=== PATIENT | female | born 1985 | race Caucasian/White ===

== ENCOUNTER 2016-11-22 04:30 | Emergency (ER) | payer MEDICAID ==
[~2016-11-22] VITALS: Ht 152.4 cm; Wt 64.5 kg
[~2016-11-22 04:30] MED LIST: DOCU-144 PO; EXCED PO; HYDR-3498 PO
[2016-11-22 04:37] VITALS: Ht 152.4 cm; Wt 64.5 kg
[2016-11-22] MEDS ORDERED: AZIT250T94 PO (05:09)
[2016-11-22] MEDS ORDERED: IBUP-1542 PO (05:09)
[2016-11-22] MEDS ORDERED: GUAI473L22 PO (05:09)
[2016-11-22] MEDS ORDERED: ALBU8.5H3 INH (05:09)
[2016-11-22] MEDS ORDERED: CETI10CA PO (05:09)
--- NOTE | 2016-11-22 05:29 | ERD ---
ER Documentation Chief Complaint Date/Time DATE: 11/22/16 TIME: 05:27 Chief Complaint cough for 4 days with post tussive emesis HPI 31-year-old female presents here in emergency department for complaint of cough for 4 days, dry cough, does not cough up any phlegm or blood. Patient has been having on and off wheezing at times. Patient has been having on and off fever. Patient also has posttussive vomiting. Patient took [id number] medication , TheraFlu and NyQuil and DayQuil, with only mild relief. Patient denies any sick contacts. Patient denies any dyspnea on exertion or dyspnea on lying down. Patient denies any palpitations or irregular heartbeat. ROS All systems reviewed and are negative except as per history of present illness. Medications Home Meds Active Scripts Albuterol Sulfate* (Proair HFA*) 8.5 Gm Hfa.aer.ad, 2 PUFF INH Q4H Y for WHEEZING AND SOB, #1 INHALER Prov:BROOKS MORENO NP 11/22/16 Ibuprofen* (Motrin*) 600 Mg Tab, 600 MG PO Q6H Y for PAIN AND OR ELEVATED TEMP, #30 TAB Prov:BROOKS MORENO NP 11/22/16 Azithromycin* (Zithromax*) 250 Mg Tablet, 250 MG PO .ZPACK DIRECTED, #6 TAB TAKE 500 MG (2 TABS) THE FIRST DAY THEN 250 MG (1 TAB) DAYS 2-5 Prov:BROOKS MORENO NP 11/22/16 Cetirizine Hcl* (Zyrtec*) 10 Mg Capsule, 10 MG PO DAILY, #30 TAB.CHEW Prov:BROOKS MORENO NP 11/22/16 Guaifenesin-Codeine Phosphate* (Guaifenesin* AC Cough Syrup) 473 Ml Liquid, 10 ML PO Q4H Y for COUGH, #60 ML Prov:BROOKS MORENO NP 11/22/16 Acetaminophen/Aspirin/Caffeine* (Excedrin*) 1 Tab Tab, 2 TAB PO Q8 for HEADACHE , #20 TAB Prov:JOY MANRIQUE PA-C 04/15/16 Docusate Sodium* (Colace*) 100 Mg Cap, 100 MG PO BID for 14 Days, 0 Refills Prov:ARMIN COTTRELL. 03/19/14 Hydrocodone Bit/Acetaminophen (Anexsia 5-325 Mg Tablet) 1 Tab Tab, 1 TAB PO Q4H Y for PAIN LEVEL 4-6, #14 0 Refills Prov:ARMIN COTTRELL. 03/19/14 Allergies Allergies: Coded Allergies: No Known Allergy (Verified , 04/15/16) PMhx/Soc Medical and Surgical Hx: pt denies Medical Hx, pt denies Surgical Hx History of Surgery: No Hx Neurological Disorder: No Hx Respiratory Disorders: No Hx Cardiac Disorders: No Hx Psychiatric Problems: No Hx Miscellaneous Medical Probl: No Hx Alcohol Use: No Hx Substance Use: No Hx Tobacco Use: No Smoking Status: Never smoker FmHx Family History: No coronary disease, No diabetes, No other Physical Exam Vitals Vital Signs Date Time Temp Pulse Resp B/P Pulse Ox O2 Delivery O2 Flow Rate FiO2 11/22/16 04:37 99.9 95 20 114/66 96 Physical Exam GENERAL: The patient is well developed and appropriate for usual state of health, in no apparent distress. HEENT: Atraumatic. Ears: Normal tympanic membrane, no erythema or bulging. No ear canal swelling. No ear discharge. Nose: normal nasal turbinates, no erythema or swelling. Normal nasal discharge. Throat: oropharynx clear. No tonsillar swelling or tonsillar exudates. No lymphadenopathy. CHEST: Clear to auscultation bilaterally. There are no rales, wheezes or rhonchi. HEART: Regular rate and rhythm. No murmurs, clicks, rubs or gallops. No S3 or S4. ABDOMEN: Soft, nontender and nondistended. Good bowel sounds. No rebound or guarding. No gross peritonitis. No gross organomegaly or masses. No Carter sign or McBurney point tenderness. BACK: No midline or flank tenderness. EXTREMITIES: Equal pulses bilaterally. There is no peripheral clubbing, cyanosis or edema. No focal swelling or erythema. Full range of motion. Grossly neurovascularly intact. NEURO: Alert and oriented. Cranial nerves 2-12 intact. Motor strength in all 4 extremities with 5/5 strength. Sensation grossly intact. Normal speech and gait. SKIN: There is no apparent rash or petechia. The skin is warm and dry. HEMATOLOGIC AND LYMPHATIC: There is no evidence of excessive bruising or lymphedema. No gross cervical, axillary, or inguinal lymphadenopathy. Results 24 hrs Current Medications Medications (Trade) Dose Ordered Sig/Pat Route PRN Reason Start Time Stop Time Status Last Admin Dose Admin Ibuprofen (Motrin) 600 mg ONCE ONCE PO 11/22/16 05:30 11/22/16 05:31 11/22/16 05:09 Patient was given medicines for fever control here in the emergency department. After treatment, patient temperature improved and lower. Patient appears well and is hemodynamically stable. Procedures/MDM Medical Decision Making: Patient symptoms are most likely consistent with acute bronchitis, which is possibly atypical infection. There is low suspicion for Pneumonia at this time since patients lungs sounds are clear, patient O2 saturation is normal and patient doesnt show any respiratory distress. Radiology exam is not indicated at this time. There is low suspicion for other cardiopulmonary emergencies at this time such as CHF, Pulmonary Embolism, Pneumothorax, Aortic Aneurysm or any other cardiopulmonary emergencies at this time. There is low suspicion for sepsis. Patient appears well and is hemodynamically stable. Fever is controlled with medicines. Disposition: Home. Condition: Stable Prescriptions: Guaifenesin with codeine, Zyrtec, ibuprofen, azithromycin, albuterol Instructions: Patient is advised to take medications as prescribed. Patient is advised to rest. Patient advised to increase fluid intake, do humidifier at home and if possible, do salt water gargles. Patient is advised that if symptoms are worse, shortness of breath, uncontrolled fever, stridor, vomiting, worst signs and symptoms to return to emergency department immediately. Otherwise, patient is advised to follow up with primary doctor in 5-7 days. Departure Diagnosis: Primary Impression: Acute bronchitis Bronchitis organism: unspecified organism Qualified Code: J20.9 - Acute bronchitis, unspecified organism Condition: Stable Patient Instructions: Bronchitis, Antiobiotic Treatment (Adult) BROOKS MORENO NP Nov 22, 2016 05:29
[2016-11-22] MEDS ORDERED: IBUPROFEN 600 MG TAB PO ONE (05:30)
== END 2016-11-22 05:30 | disposition home or self-care (01) ==
LOC: FTE 04:30
DX: J20.9 Acute bronchitis, unspecified (principal)
CPT/HCPCS: Z7502; Z7610; 99284

== ENCOUNTER 2017-04-11 08:59 | Emergency (ER) | payer MEDICAID ==
[~2017-04-11] VITALS: Wt 67.1 kg
[~2017-04-11 08:59] MED LIST changes: +ALBU8.5H3 INH; +AZIT250T94 PO; +CETI10CA PO; +GUAI473L22 PO; +IBUP-1542 PO
--- NOTE | 2017-04-11 09:26 | ERD ---
ER Documentation Chief Complaint Chief Complaint constipation, blood in stool after using restroom HPI This is a 32-year-old female presents emergency department today complaining of intermittent constipation for the past 2 weeks. States her last bowel movement was day before yesterday. States that she also had small drops of blood in her stool and in the toilet. Denies any abdominal pain, fevers or chills, vomiting or diarrhea ROS All systems reviewed and are negative except as per history of present illness. Medications Home Meds Active Scripts Docusate Sodium* (Colace*) 100 Mg Capsule, 100 MG PO TID, #30 CAP Prov:LORELEI CELESTIN PA-C 04/11/17 Polyethylene Glycol* (Miralax*) 17 Gm Powd.pack, 17 GM PO DAILY, #15 Prov:LORELEI CELESTIN PA-C 04/11/17 Hydrocortisone Acetate (Anusol-Hc) 25 Mg Supp.rect, 1 SUPP OK BID Y for HEMORROID PAIN/ITCHING, #15 SUPP.RECT Prov:LORELEI CELESTIN PA-C 04/11/17 Acetaminophen* (Tylophen*) 500 Mg Capsule, 1 CAP PO Q6H Y for PAIN AND OR ELEVATED TEMP, #30 CAP Prov:LORELEI CELESTIN PA-C 04/11/17 Albuterol Sulfate* (Proair HFA*) 8.5 Gm Hfa.aer.ad, 2 PUFF INH Q4H Y for WHEEZING AND SOB, #1 INHALER Prov:BROOKS MORENO NP 11/22/16 Ibuprofen* (Motrin*) 600 Mg Tab, 600 MG PO Q6H Y for PAIN AND OR ELEVATED TEMP, #30 TAB Prov:BROOKS MORENO NP 11/22/16 Azithromycin* (Zithromax*) 250 Mg Tablet, 250 MG PO .IDANIA DIRECTED, #6 TAB TAKE 500 MG (2 TABS) THE FIRST DAY THEN 250 MG (1 TAB) DAYS 2-5 Prov:BROOKS MORENO NP 11/22/16 Cetirizine Hcl* (Zyrtec*) 10 Mg Capsule, 10 MG PO DAILY, #30 TAB.CHEW Prov:BROOKS MORENO NP 11/22/16 Guaifenesin-Codeine Phosphate* (Guaifenesin* AC Cough Syrup) 473 Ml Liquid, 10 ML PO Q4H Y for COUGH, #60 ML Prov:BROOKS MORENO [employer]ER 11/22/16 Acetaminophen/Aspirin/Caffeine* (Excedrin*) 1 Tab Tab, 2 TAB PO Q8 for HEADACHE , #20 TAB Prov:JOY MANRIQUE PA-C 04/15/16 Docusate Sodium* (Colace*) 100 Mg Cap, 100 MG PO BID for 14 Days, 0 Refills Prov:LALITA COTTRELLCRYSTAL Mckeon. 03/19/14 Hydrocodone Bit/Acetaminophen (Anexsia 5-325 Mg Tablet) 1 Tab Tab, 1 TAB PO Q4H Y for PAIN LEVEL 4-6, #14 0 Refills Prov:EMILY COTTRELLFlavia Mike. 03/19/14 Allergies Allergies: Coded Allergies: No Known Allergy (Verified , 04/15/16) PMhx/Soc History of Surgery: No Hx Neurological Disorder: No Hx Respiratory Disorders: No Hx Cardiac Disorders: No Hx Psychiatric Problems: No Hx Miscellaneous Medical Probl: No Hx Alcohol Use: No Hx Substance Use: No Hx Tobacco Use: No Physical Exam Vitals Vital Signs Date Time Temp Pulse Resp B/P Pulse Ox O2 Delivery O2 Flow Rate FiO2 04/11/17 09:02 98.2 70 18 117/61 100 Physical Exam Const: NAD Head: Atraumatic Eyes: Normal Conjunctiva ENT: Normal External Ears, Nose and Mouth. Neck: Full range of motion..~ No meningismus. Resp: Clear to auscultation bilaterally Cardio: Regular rate and rhythm, no murmurs Abd: Soft, non tender, non distended. Normal bowel sounds : Rectal exam with evidence of small external hemorrhoid. Skin: No petechiae or rashes Back: No midline or flank tenderness Ext: No cyanosis, or edema Neur: Awake and alert Psych: Normal Mood and Affect Results 24 hrs Laboratory Tests Test 04/11/17 09:14 Stool Occult Blood NEGATIVE Procedures/MDM This is a 32-year-old female who presents the emergency department today complaining of intermittent constipation for the past 2 weeks as well as some blood in her stool. Patient's abdomen is soft and nontender. She has had no vomiting. Do not feel that she requires further laboratory workup or imaging at this time. I will assist patient for bowel obstruction, acute surgical abdomen. On patient's rectal exam she did have evidence of external hemorrhoids. I do have suspicion that this is where the blood in her stool is coming from. I have explained this to the patient however I did obtain a occult stool sample Hemoccult is negative. Symptoms at this time is consistent with constipation and hemorrhoid She will be given a prescription for MiraLAX, Colace, Anusol and Tylenol. At this time the patient is stable for discharge and outpatient management. Patient should follow up with their PCP in the next 1-2 days. They may return to the emergency department sooner for any persistent or worsening of symptoms. Patient understood and agreed with the plan. Departure Diagnosis: Primary Impression: Constipation Constipation type: unspecified constipation type Qualified Code: K59.00 - Constipation, unspecified constipation type Additional Impression: Hemorrhoids Hemorrhoid type: unspecified Qualified Code: K64.9 - Hemorrhoids, unspecified hemorrhoid type Condition: LORELEI Crawford PA-C Apr 11, 2017 09:26
[2017-04-11] MEDS ORDERED: HYDR25SU23 PR (09:33)
[2017-04-11] MEDS ORDERED: ACET500C5 PO (09:33)
[2017-04-11] MEDS ORDERED: POLY17PO6 PO (09:34)
[2017-04-11] MEDS ORDERED: DOCU-144 PO (09:34)
== END 2017-04-11 09:56 | disposition home or self-care (01) ==
LOC: FTE 08:59
DX: K59.00 Constipation, unspecified (principal); K64.9 Unspecified hemorrhoids
CPT/HCPCS: 82270; Z7502; 99283

== ENCOUNTER 2017-07-13 09:06 | Emergency (ER) | END 2017-07-13 18:26 | disposition home or self-care (01) ==